=== PATIENT | male | born 1995 | race Caucasian/White ===

== ENCOUNTER 2018-12-13 22:34 | Emergency (ER) | payer BC ==
[~2018-12-13] VITALS: Ht 190.5 cm; Wt 122.6 kg
[2018-12-13 22:40] VITALS: Ht 190.5 cm; Wt 122.6 kg
--- NOTE | 2018-12-13 22:46 | ERD ---
ER Documentation Chief Complaint Chief Complaint ?seizure today, in detox from heroin/meth HPI The patient is a 23-year-old male, came to the emergency department from detox center. He checked into detox center around 1 PM yesterday after using crystal meth and heroin. Tonight around 10:30 PM, was witnessed by the staff of [facility] lower extremity twitching and incoherent for approximately 30 seconds; he was therefore brought [facility] evaluation. He was only incoherent for approximately a minute after the event and was back to himself. He denies tongue bite, fecal/urinary incontinence, denies fever, headache, neck pain, chest pain, dyspnea, abdominal pain, vomiting, dysuria, diarrhea. He was in rehab about 3 weeks ago. He feels very anxious, does not smoke nor drink Past medical history: Anxiety Past surgical history: None ROS All systems reviewed and are negative except as per history of present illness. Medications Home Meds Reported Medications Gabapentin* (Gabapentin*) 300 Mg Capsule, 300 MG PO BID, #60 CAP 12/13/18 Allergies Allergies: Coded Allergies: Penicillins (Unverified Allergy, Unknown, 12/13/18) Physical Exam Vitals Vital Signs Date Temp Pulse Resp B/P (MAP) Pulse Ox O2 O2 Flow FiO2 Time Delivery Rate 12/13/18 Nasal 23:07 Cannula 12/13/18 98.1 103 22 145/72 93 22:40 (96) Physical Exam Const: No acute distress. Head: Atraumatic. Eyes: Normal Conjunctiva. ENT: Normal External Ears, Nose and Mouth. Neck: Full range of motion. No meningismus. Resp: Clear to auscultation bilaterally. Cardio: Regular rate and rhythm. Abd: Soft, non distended, normal bowel sounds, non tender. Skin: No petechiae or rashes. Back: No midline or flank tenderness. Ext: No cyanosis, or edema. Neur: Awake and alert. No focal deficit Psych: Anxious Result Diagram: 12/13/183 12/13/183 Results 24 hrs Laboratory Tests Test 12/13/18 23:23 White Blood Count 8.8 10^3/ul Red Blood Count 4.58 10^6/ul Hemoglobin 14.2 g/dl Hematocrit 39.8 % Mean Corpuscular Volume 86.9 fl Mean Corpuscular Hemoglobin 31.0 pg Mean Corpuscular Hemoglobin Concent 35.7 g/dl Red Cell Distribution Width 12.6 % Platelet Count 223 10^3/UL Mean Platelet Volume 9.6 fl Immature Granulocytes % 0.200 % Neutrophils % 60.6 % Lymphocytes % 22.5 % Monocytes % 12.5 % Eosinophils % 4.0 % Basophils % 0.2 % Nucleated Red Blood Cells % 0.0 /100WBC Immature Granulocytes # 0.020 10^3/ul Neutrophils # 5.3 10^3/ul Lymphocytes # 2.0 10^3/ul Monocytes # 1.1 10^3/ul Eosinophils # 0.4 10^3/ul Basophils # 0.0 10^3/ul Nucleated Red Blood Cells # 0.0 10^3/ul Sodium Level 134 mmol/L Potassium Level 3.8 mmol/L Chloride Level 92 mmol/L Carbon Dioxide Level 28 mmol/L Anion Gap 14 Blood Urea Nitrogen 13 mg/dl Creatinine 0.78 mg/dl Est Glomerular Filtrat Rate mL/min > 60 mL/min Glucose Level 117 mg/dl Calcium Level 9.7 mg/dl Magnesium Level 1.5 mg/dl Ethyl Alcohol Level < 10.0 mg/dl Current Medications Medications Dose Sig/Yoly Start Time Status Last (Trade) Ordered Route PRN Stop Time Admin Dose Reason Admin Sodium 1,000 ml @ Q1H ONCE 12/13/18 DC 12/13/18 Chloride 1,000 mls/hr IV 23:00 23:18 12/13/18 23:59 Lorazepam 1 mg ONCE ONCE 12/13/18 DC 12/13/18 (Ativan) IV 23:00 23:16 12/13/18 23:01 Magnesium 800 mg ONCE ONCE 12/14/18 UNV Oxide PO 00:30 (Mag-Ox 400) 12/14/18 00:31 Sodium 1,000 ml @ Q1H ONCE 12/14/18 Chloride 1,000 mls/hr IV 01:00 12/14/18 01:59 Procedures/MDM EKG: Read by emergency physician Rate/Rhythm: Normal Sinus Rhythm 81 beats/min QRS, ST, T-waves: No ST elevation, no T inversion Impression: Normal EKG MEDICAL MAKING DECISION: The patient is a 23-year-old male, presenting with acute withdrawal symptoms from amphetamine and heroin, acute dehydration, acute anxiety, acute hypomagnesemia. He was treated with 2 L normal saline for acute dehydration l for acute dehydration, Ativan 1 mg IV acute anxiety withdrawal symptoms, magnesium oxide 800 mg p.o. for acute hypomagnesemia The differential diagnoses considered include but are not limited to anxiety attack, panic attack, electrolyte imbalance, dehydration Departure Diagnosis: Primary Impression: Amphetamine withdrawal Additional Impressions: Heroin withdrawal Dehydration Hypomagnesemia Condition: Good Comments I discussed the findings with the patient. I advised the patient to follow-up with the primary physician in about 1-2 days, sooner if needed and return if any concern. Disclaimer: Inadvertent spelling and grammatical errors are likely due to EHR/dictation software use and do not reflect on the overall quality of patient care. Also, please note that the electronic time recorded on this note does not necessarily reflect the actual time of the patient encounter. HARDY DEL CID MD Dec 13, 2018 22:46
[2018-12-13] MEDS ORDERED: SOD CHLORIDE 0.9% 1,000 ML IV ONE (23:00)
[2018-12-13] MEDS ORDERED: LORAZEPAM 2 MG INJ IV ONE (23:00)
[2018-12-13] MEDS ORDERED: GABA300C16 PO (23:54)
[2018-12-14] MEDS ORDERED: MAGNESIUM OXIDE 400 MG TAB PO ONE (00:30)
[2018-12-14] MEDS ORDERED: SOD CHLORIDE 0.9% 1,000 ML IV ONE (01:00)
[2018-12-14 01:37] VITALS: BP 120/89; PULSE 90; RESP 20
== END 2018-12-14 01:38 | disposition home or self-care (01) ==
LOC: E/R 22:34
DX: F15.23 Other stimulant dependence with withdrawal (principal); F11.23 Opioid dependence with withdrawal; E86.0 Dehydration; E83.42 Hypomagnesemia
CPT/HCPCS: 36415; 80048; 80307; 83735; 85025; 93005; 96374; 99284; J2060; J7030